=== PATIENT | male | born 1955 | race Caucasian/White ===

== ENCOUNTER 2017-12-22 21:24 | Emergency (ER) | payer BC ==
[~2017-12-22] VITALS: Ht 177.8 cm; Wt 86.2 kg
[2017-12-22] MEDS ORDERED: LANTUS SOLOSTAR 100 UNIT/ML (21:44)
[2017-12-22] MEDS ORDERED: LISINOPRIL 20 MG TABLET (21:44)
[2017-12-22] MEDS ORDERED: ATORVASTATIN 80 MG TABLET (21:44)
[2017-12-22] MEDS ORDERED: INSULIN LISPRO 100 UNIT/ML (21:44)
[2017-12-22] MEDS ORDERED: IV NORMAL SALINE 1000 ML BAG IV ONE (22:00)
[2017-12-22] MEDS ORDERED: HYDROMORPHONE 1 MG/1 ML DISP.SYRIN IV ONE ×2 (22:00→23:15)
[2017-12-22] MEDS ORDERED: KETOROLAC TROMETHAMINE 15 MG INJ IV ONE (22:00)
[2017-12-22] MEDS ORDERED: ONDANSETRON 4 MG/2 ML VIAL IV ONE (22:00)
[2017-12-22 22:12] LABS: BASOPHILS % (AUTO) 0.3 % (0.0-2.0); EOSINOPHILS # (AUTO) 0.2 K/uL (0.0-0.7); EOSINOPHILS % (AUTO) 1.7 % (0.0-7.0); HEMATOCRIT 40.5 % (36.7-47.1); HEMOGLOBIN 14.2 g/dL (12.5-16.3); LYMPHOCYTES # (AUTO) 0.7 K/uL (20.0-40.0); LYMPHOCYTES % (AUTO) 7.5 % (20.5-51.5); MEAN CORPUSCULAR HEMOGLOBIN 30.1 uug (23.8-33.4); MEAN CORPUSCULAR HGB CONC 35 g/dL (32.5-36.3); MEAN CORPUSCULAR VOLUME 86.2 fL (73.0-96.2); MONOCYTES # (AUTO) 0.8 K/uL (2.0-10.0); MONOCYTES % (AUTO) 8.2 % (0.0-11.0); NEUTROPHILS # (AUTO) 8.2 K/uL (1.8-8.9); NEUTROPHILS % (AUTO) 82.3 % (38.5-71.5); PLATELET COUNT (AUTO) 155 K/uL (152-348)
[2017-12-22] MEDS ORDERED: KETOROLAC TROMETHAMINE 15 MG INJ ONE (22:14)
[2017-12-22] MEDS ORDERED: HYDROMORPHONE 2 MG/1 ML DISP.SYRIN ONE ×2 (22:15→23:09)
[2017-12-22] MEDS ORDERED: ONDANSETRON 4 MG/2 ML VIAL ONE (22:15)
[2017-12-22 22:18] LABS: *BILIRUBIN,URIN NEGATIVE (NEGATIVE); *BLOOD, URINE 1+ (NEGATIVE); *CLARITY,URINE CLEAR (CLEAR); *COLOR,URINE YELLOW (YELLOW); *KETONES,URINE 1+ (NEGATIVE); *PROTEIN,URINE NEGATIVE (NEGATIVE); *UROBILINOGEN,URINE 0.2 E.U./dl (NORMAL); LEUKOCYTE ESTERASE ,URINE NEGATIVE (NEGATIVE); NITRITE, URINE NEGATIVE (NEGATIVE); UGLUCOSE NEGATIVE (NEGATIVE)
[2017-12-22 22:33] LABS: BILIRUBIN,DIRECT 0.2 mg/dL (0.0-0.2); BILIRUBIN,TOTAL 0.6 mg/dL (0.2-1.0); CREATININE 2.3 mg/dL (0.6-1.3); POTASSIUM 4.1 mmol/L (3.5-5.1); TOTAL PROTEIN, SERUM 6.9 g/dL (6.4-8.2)
--- NOTE | 2017-12-22 22:35 | NUR ---
Ultrasound at bedside
[2017-12-22 22:49] LABS: BACTERIA,URINE NONE SEEN /HPF (NONE SEEN); MUCUS,URINE FEW /LPF (0-FEW); SQUAMOUS EPITHELIAL CELL,UR FEW /HPF (NONE SEEN); WBC,URINE 0-3 /HPF (0-3)
[2017-12-22] MEDS ORDERED: METOCLOPRAMIDE HCL 10 MG/2 ML VIAL ONE (23:12)
[2017-12-22] MEDS ORDERED: TAMSULOSIN HCL 0.4 MG CAP.SR.24H ONE (23:12)
[2017-12-22] MEDS ORDERED: METOCLOPRAMIDE HCL 10 MG/2 ML VIAL IV ONE (23:15)
[2017-12-22] MEDS ORDERED: TAMSULOSIN HCL 0.4 MG CAP.SR.24H PO ONE (23:15)
[2017-12-22] MEDS ORDERED: METOCLOPRAMIDE HCL 10 MG/2 ML VIAL IM ONE (23:30)
[2017-12-22] MEDS ORDERED: HYDROMORPHONE 1 MG/1 ML DISP.SYRIN IM ONE (23:30)
--- NOTE | 2017-12-22 23:50 | NUR ---
IV removed. Catheter intact and site benign. Pressure and 4x4 gauze applied to site. No bleeding noted.
--- NOTE | 2017-12-22 23:57 | NUR ---
Patient discharged to home in stable conditon. Written and verbal after care instructions given. Patient verbalizes understanding of instructions. Pt ambulated out of ER in steady gait accompanied by who will drive home. All belongings with pt. VSS. NAD noted.
[2017-12-22 23:58] VITALS: BP 151/91
== END 2017-12-22 23:59 | disposition home or self-care (01) ==
LOC: ER 21:25
DX: N20.0 Calculus of kidney (principal); I10 Essential (primary) hypertension; E78.00 Pure hypercholesterolemia, unspecified; E11.9 Type 2 diabetes mellitus without complications; Z88.5 Allergy status to narcotic agent; Z79.4 Long term (current) use of insulin
CPT/HCPCS: 36415; 76770; 83690; 85025; A4663; J1170; J1885; J2405; J2765; J7030

== ENCOUNTER 2017-12-25 11:11 | Emergency (ER) | payer BC ==
[~2017-12-25] VITALS: Ht 177.8 cm; Wt 86.2 kg
[~2017-12-25 11:11] MED LIST: ATORVASTATIN 80 MG TABLET; INSULIN LISPRO 100 UNIT/ML; LANTUS SOLOSTAR 100 UNIT/ML; LISINOPRIL 20 MG TABLET
[2017-12-25] MEDS ORDERED: ONDANSETRON IV *ER 4 MG/2 ML VIAL IV ONE ×2 (11:45→12:45)
[2017-12-25] MEDS ORDERED: KETAMINE HCL 500 MG/10 ML INJ IV ONE (11:45)
[2017-12-25] MEDS ORDERED: IV NORMAL SALINE 1000 ML BAG IV ONE (11:45)
[2017-12-25 11:56] LABS: BASOPHILS % (AUTO) 0.3 % (0.0-2.0); EOSINOPHILS % (AUTO) 0.2 % (0.0-7.0); HEMOGLOBIN 13.8 g/dL (12.5-16.3); LYMPHOCYTES # (AUTO) 0.6 K/uL (20.0-40.0); LYMPHOCYTES % (AUTO) 5.3 % (20.5-51.5); MEAN CORPUSCULAR HEMOGLOBIN 29.4 uug (23.8-33.4); MEAN CORPUSCULAR HGB CONC 34 g/dL (32.5-36.3); MEAN CORPUSCULAR VOLUME 85.4 fL (73.0-96.2); MONOCYTES # (AUTO) 1.2 K/uL (2.0-10.0); MONOCYTES % (AUTO) 11.1 % (0.0-11.0); NEUTROPHILS # (AUTO) 9.1 K/uL (1.8-8.9); NEUTROPHILS % (AUTO) 83.1 % (38.5-71.5); PLATELET COUNT (AUTO) 168 K/uL (152-348); RED BLOOD CELL COUNT(AUTO) 4.69 MIL/uL (4.06-5.63)
[2017-12-25 11:59] LABS: POTASSIUM 4.1 mmol/L (3.5-5.1)
[2017-12-25 12:04] LABS: BILIRUBIN,DIRECT 0.2 mg/dL (0.0-0.2); BILIRUBIN,TOTAL 0.9 mg/dL (0.2-1.0); TOTAL PROTEIN, SERUM 7.4 g/dL (6.4-8.2)
[2017-12-25] MEDS ORDERED: ONDANSETRON 4 MG/2 ML VIAL ONE ×2 (12:05→13:04)
[2017-12-25] MEDS ORDERED: KETAMINE HCL 500 MG/10 ML INJ ONE (12:05)
[2017-12-25] MEDS ORDERED: LORAZEPAM 2 MG/1 ML VIAL IV ONE (12:45)
[2017-12-25] MEDS ORDERED: LORAZEPAM 2 MG/1 ML VIAL ONE (13:05)
[2017-12-25] MEDS ORDERED: KETOROLAC TROMETHAMINE 30 MG INJ IVP ONE ×2 (13:45→16:30)
--- NOTE | 2017-12-25 13:45 | NUR ---
bolivar masterson talking to dr. mae urologist
[2017-12-25] MEDS ORDERED: KETOROLAC TROMETHAMINE 30 MG INJ ONE ×2 (13:57→16:22)
--- NOTE | 2017-12-25 14:57 | NUR ---
dr[facility]utz [facility]
--- NOTE | 2017-12-25 16:13 | NUR ---
gave report to mat at [facility]. pt is going to room 321, accepting md is dr. kessler. transfer arranged [place].
--- NOTE | 2017-12-25 16:20 | NUR ---
[facility] arrived to transport pt to [facility]. Report and documentation given to EMT.
--- NOTE | 2017-12-25 16:29 | NUR ---
Pt out of ER via [facility], to transport pt to [facility], no acute signs of distress, all belongings taken.
== END 2017-12-25 16:31 | disposition short-term general hospital (02) ==
LOC: ER 11:11
DX: N20.0 Calculus of kidney (principal); N13.30 Unspecified hydronephrosis; E78.00 Pure hypercholesterolemia, unspecified; E11.9 Type 2 diabetes mellitus without complications; I10 Essential (primary) hypertension; Z88.5 Allergy status to narcotic agent; Z79.4 Long term (current) use of insulin
CPT/HCPCS: 36415; 71045; 74176; 76770; 80048; 80076; 83690; 84484; 85025; 85730; 93005; 96361; 96374; 96375; 96376; 99285; A4663; J1885 ×2; J2405; J3490; J7030; 70030-TC; J2060